=== PATIENT | male | born 1975 | race Caucasian/White ===

== ENCOUNTER 2025-03-06 08:53 | Day surgery (SDC) | payer OTHER ==
[~2025-03-06 08:53] MED LIST: Sodium Chloride 0.9% 10 ML Syringe FLUSH PRN
[2025-03-06] MEDS ORDERED: Ketamine 500 mg/10 ML MDV IV ONE (08:54)
[2025-03-06] MEDS ORDERED: Propofol 200 MG/20 ML SDV IV ONE (08:54)
[2025-03-06] MEDS ORDERED: Midazolam 1 MG/ML 2 ML SDV IV ONE (08:54)
[2025-03-06] MEDS: Lactated Ringers 1,000 ML IV SCH (09:31)
== END 2025-03-06 10:52 | disposition home or self-care (01) ==
LOC: FB.SDS 08:53
PROVIDERS: ATTEND Surgery
DX: Z12.11 Encounter for screening for malignant neoplasm of colon (principal); K62.89 Other specified diseases of anus and rectum; K40.90 Unilateral inguinal hernia, without obstruction or gangrene, not specified as recurrent; E66.9 Obesity, unspecified; Z68.34 Body mass index [BMI] 34.0-34.9, adult
CPT/HCPCS: 00811; A9270-GY; J2003; J2250; J2704; J3490; J7120